=== PATIENT | male | born 1965 | race Caucasian/White ===

== ENCOUNTER → 2016-07-10 | Outpatient (CLI) | payer BC ==
[2016-07-10 08:22] LABS: ALT 48 U/L (21-72); AST 27 U/L (17-59); Cholesterol 147 mg/dL (<200); HDL Cholesterol 53 mg/dL (40-60); Triglycerides 93 mg/dL (<150)
== END | disposition home or self-care (01) ==
LOC: LABWHC1 07:13
PROVIDERS: ATTEND Internal Medicine Cardiovascular Disease
DX: I25.10 Atherosclerotic heart disease of native coronary artery without angina pectoris (principal); E78.5 Hyperlipidemia, unspecified
CPT/HCPCS: 36415; 80061; 84450; 84460

== ENCOUNTER 2016-10-16 09:56 | Emergency (ER) | payer BC ==
[2016-10-16 10:07] VITALS: RESP 16; TEMP 98
[2016-10-16] MEDS ORDERED: Acetaminophen-Codeine 300-30mg TAB PO STA (10:58)
--- NOTE | 2016-10-16 10:58 | ED ---
General Adult HPI - General Chief complaint: Head Injury Stated complaint: head injury, laceration Time Seen by Provider: 10/16/16 10:22 Source: patient, RN notes reviewed, old records reviewed Mode of arrival: ambulatory Limitations: no limitations - History of Present Illness Initial comments: This is a 51-year-old male here for evaluation of headache. Patient is had tonight and denies in his garage, mild laceration with minimal bleeding. Patient does have gapped wound. Not known severe headache at this time. No nausea vomiting. Patient did not pass out. No blood thinners. - Related Data Home Medications Medication Instructions Recorded Confirmed Aspirin 325 mg PO DAILY 08/14/14 10/16/16 Atorvastatin [Lipitor] 80 mg PO HS 08/14/14 10/16/16 Isosorbide Mononitrate [Isosorbide 30 mg PO DAILY 08/14/14 10/16/16 Mononitrate ER] Metoprolol Tartrate 50 mg PO DAILY 08/14/14 10/16/16 Omeprazole [PriLOSEC] 20 mg PO AC-BRKFST 08/14/14 10/16/16 Simvastatin [Zocor] 40 mg PO HS 08/14/14 10/16/16 Triamterene-Hctz 37.5-25Mg 1 each PO DAILY 08/14/14 10/16/16 [Dyazide 37.5-25 Capsule] Allergies Allergy/AdvReac Type Severity Reaction Status Date / Time Penicillins Allergy Rash/Hives Verified 10/16/16 10:07 Review of Systems ROS Statement: Those systems with pertinent positive or pertinent negative responses have been documented in the HPI. ROS Other: All systems not noted in ROS Statement are negative. Past Medical History Past Medical History: Coronary Artery Disease (CAD) Additional Past Medical History / Comment(s): Meniere's dx-tinnitis R ear, low back pain on occasion if lifts heavy, hiatal hernia, migraines History of Any Multi-Drug Resistant Organisms: None Reported Past Surgical History: Heart Catheterization With Stent, Hernia Repair Additional Past Surgical History / Comment(s): 2009 angioplasty and stenting. Bilateral inguinal hernia repair. EGD with dilation of esophagus. Date of Last Stent Placement:: 2009 Past Psychological History: No Psychological Hx Reported Additional Psychological History / Comment(s): Pt lives at home with his and his children. He is independent. 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 Smoking Status: Never smoker Past Alcohol Use History: Occasional Additional Past Alcohol Use History / Comment(s): Pt drinks alcohol on the weekends but < 14 per week. Past Drug Use History: None Reported - Past Family History Father Family Medical History: AFIB, Cancer Additional Family Medical History / Comment(s): Father has bladder cancer and has had AAA repair. Mother Family Medical History: Coronary Artery Disease (CAD) Additional Family Medical History / Comment(s): Mother has had 4-5 stents. She also has macular degeneration. Brother(s) Family Medical History: Cancer, Coronary Artery Disease (CAD), Hypertension Additional Family Medical History / Comment(s): Pt has one brother with colon cancer and one brother with hypertension and heart disease. General Exam Limitations: no limitations General appearance: alert, in no apparent distress Head exam: Present: normocephalic, normal inspection. Absent: atraumatic (1 cm laceration Of occiput) Eye exam: Present: normal appearance, PERRL, EOMI. Absent: scleral icterus, conjunctival injection, periorbital swelling ENT exam: Present: normal exam, mucous membranes moist Neck exam: Present: normal inspection. Absent: tenderness, meningismus, lymphadenopathy Respiratory exam: Present: normal lung sounds bilaterally. Absent: respiratory distress, wheezes, rales, rhonchi, stridor Cardiovascular Exam: Present: regular rate, normal rhythm, normal heart sounds. Absent: systolic murmur, diastolic murmur, rubs, gallop, clicks GI/Abdominal exam: Present: soft, normal bowel sounds. Absent: distended, tenderness, guarding, rebound, rigid Extremities exam: Present: normal inspection, full ROM, normal capillary refill. Absent: tenderness, pedal edema, joint swelling, calf tenderness Back exam: Present: normal inspection Neurological exam: Present: alert, oriented X3, CN II-XII intact Psychiatric exam: Present: normal affect, normal mood Skin exam: Present: warm, dry, intact, normal color. Absent: rash Course Vital Signs 10/16/16 10:04 Temperature 98.0 F Pulse Rate 73 Respiratory 16 Rate Blood Pressure 135/87 O2 Sat by Pulse 96 Oximetry - Reevaluation(s) Reevaluation #1: 10/16/16 10:56 Patient having mild headache after staple Procedures - Laceration Laceration #1 Consent Obtained: verbal consent Time Out Performed: Yes Indication: laceration Site: scalp Description: linear Depth: simple, single layer Pre-repair: irrigated extensively Type of Sutures: other (Stable) Complications: pain Patient Tolerated Procedure: well Medical Decision Making - Medical Decision Making 51 male here for evaluation of very, scalp laceration, improvement with 1 stable. Patient can be discharged home Disposition Clinical Impression: Scalp laceration, Closed head injury Disposition: HOME SELF-CARE Condition: Good Instructions: Concussion (ED), Staple Care (ED) Referrals: Esthela Mendez MD [Primary Care Provider] - 1-2 days
[2016-10-16 11:16] VITALS: BP 119/68; PULSE 62
== END 2016-10-16 11:14 | disposition home or self-care (01) ==
LOC: EC 09:56
DX: S01.01XA Laceration without foreign body of scalp, initial encounter (principal); I25.10 Atherosclerotic heart disease of native coronary artery without angina pectoris; Z79.82 Long term (current) use of aspirin; Z79.899 Other long term (current) drug therapy; Z88.0 Allergy status to penicillin; W22.8XXA Striking against or struck by other objects, initial encounter
CPT/HCPCS: 12001; 99284

== ENCOUNTER → 2017-06-25 | Outpatient (CLI) | payer BC ==
[2017-06-25 08:36] LABS: ALT 46 U/L (21-72); AST 25 U/L (17-59); Cholesterol 149 mg/dL (<200); HDL Cholesterol 52 mg/dL (40-60); LDL Cholesterol,Calculated 81 mg/dL (0-99); Triglycerides 81 mg/dL (<150)
== END | disposition home or self-care (01) ==
LOC: LABWHC1 07:22
PROVIDERS: ATTEND Internal Medicine Cardiovascular Disease
DX: E78.5 Hyperlipidemia, unspecified (principal); I25.10 Atherosclerotic heart disease of native coronary artery without angina pectoris
CPT/HCPCS: 36415; 80061; 84450; 84460

== ENCOUNTER → 2018-02-11 | Outpatient (CLI) | payer BC ==
[2018-02-11 09:06] LABS: ALT 39 U/L (21-72); AST 27 U/L (17-59); Cholesterol 141 mg/dL (<200); HDL Cholesterol 52 mg/dL (40-60); LDL Cholesterol,Calculated 71 mg/dL (0-99); Triglycerides 89 mg/dL (<150)
== END | disposition home or self-care (01) ==
LOC: LABWHC1 08:24
PROVIDERS: ATTEND Internal Medicine Cardiovascular Disease
DX: I25.10 Atherosclerotic heart disease of native coronary artery without angina pectoris (principal); E78.5 Hyperlipidemia, unspecified
CPT/HCPCS: 36415; 80061; 84450; 84460

== ENCOUNTER 2018-02-22 15:22 | Emergency (ER) | payer BC ==
[2018-02-22 15:38] VITALS: BP 142/91; PULSE 78; RESP 20; TEMP 98.2
--- NOTE | 2018-02-22 16:00 | ED ---
Upper Extremity HPI - General Chief Complaint: Extremity Injury, Upper Stated Complaint: rt wrist injury Time Seen by Provider: 02/22/18 15:39 Source: patient, RN notes reviewed Mode of arrival: ambulatory Limitations: no limitations - History of Present Illness Initial Comments: This is a 52-year-old male who presents to the emergency department with chief complaint of right wrist injury. 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 He states that yesterday he was pulling a beer barrel with his right and and then he accidentally slipped forward and his wrist jammed into the barrel. Patient reports pain to the ulnar aspect of his right wrist. He states he did go to work today but continued to have pain in the wrist. Denies any other injuries or trauma. Denies recent fevers or chills, chest pain or shortness breath, nausea or vomiting, numbness or tingling. - Related Data Home Medications Medication Instructions Recorded Confirmed Aspirin 325 mg PO DAILY 08/14/14 10/16/16 Atorvastatin [Lipitor] 80 mg PO HS 08/14/14 10/16/16 Isosorbide Mononitrate [Isosorbide 30 mg PO DAILY 08/14/14 10/16/16 Mononitrate ER] Metoprolol Tartrate 50 mg PO DAILY 08/14/14 10/16/16 Omeprazole [PriLOSEC] 20 mg PO AC-BRKFST 08/14/14 10/16/16 Simvastatin [Zocor] 40 mg PO HS 08/14/14 10/16/16 Triamterene-Hctz 37.5-25Mg 1 each PO DAILY 08/14/14 10/16/16 [Dyazide 37.5-25 Capsule] Allergies Allergy/AdvReac Type Severity Reaction Status Date / Time Penicillins Allergy Rash/Hives Verified 02/22/18 15:38 Review of Systems ROS Statement: Those systems with pertinent positive or pertinent negative responses have been documented in the HPI. ROS Other: All systems not noted in ROS Statement are negative. Past Medical History Past Medical History: Coronary Artery Disease (CAD) Additional Past Medical History / Comment(s): Meniere's dx-tinnitis R ear, low back pain on occasion if lifts heavy, hiatal hernia, migraines History of Any Multi-Drug Resistant Organisms: None Reported Past Surgical History: Heart Catheterization With Stent, Hernia Repair Additional Past Surgical History / Comment(s): 2010 angioplasty and stenting. Bilateral inguinal hernia repair. EGD with dilation of esophagus. Date of Last Stent Placement:: 2009 Past Psychological History: No Psychological Hx Reported Smoking Status: Never smoker Past Alcohol Use History: Occasional Past Drug Use History: None Reported - Past Family History Father Family Medical History: AFIB, Cancer Additional Family Medical History / Comment(s): Father has bladder cancer and has had AAA repair. Mother Family Medical History: Coronary Artery Disease (CAD) Additional Family Medical History / Comment(s): Mother has had 4-5 stents. She also has macular degeneration. Brother(s) Family Medical History: Cancer, Coronary Artery Disease (CAD), Hypertension Additional Family Medical History / Comment(s): Pt has one brother with colon cancer and one brother with hypertension and heart disease. General Exam - General Exam Comments Initial Comments: General: Awake and alert, well-developed; in no apparent distress. HEENT: Head atraumatic, normocephalic. Pupils are equal, round and reactive to light. Extraocular movements intact. Oropharynx moist without erythema or exudate. Neck: Supple. Normal ROM. Cardiovascular: Regular rate and rhythm. No murmurs, rubs or gallops. Chest symmetrical. Respiratory: Lungs clear to auscultation bilaterally. No wheezes, rales or rhonchi. Normal respiratory effort with no use of accessory muscles. Musculoskeletal: Normal range of motion of the right wrist and hand. There is tenderness and mild soft tissue swelling surrounding the ulnar styloid process. Sensation is intact. Radial pulses are 2+ equal and palpable bilaterally. No obvious gross deformities. Skin: [place], warm and dry without rashes or lesions. Neurological: Alert and oriented x3. CN II-XII grossly intact. Speech is fluent and answers are appropriate. No focal neuro deficits. Psychiatric: Normal mood and affect. No overt signs of depression or anxiety noted. Limitations: no limitations Course Vital Signs 02/22/18 15:36 Temperature 98.2 F Pulse Rate 78 Respiratory 20 Rate Blood Pressure 142/91 O2 Sat by Pulse 96 Oximetry Medical Decision Making - Medical Decision Making This is a 52-year-old male who presents to the emergency department with chief complaint of right wrist injury. Patient reports pain to the ulnar aspect of his right wrist. There is tenderness and mild soft tissue swelling surrounding the ulnar styloid. X-ray reveals no acute fractures or dislocations. Patient is likely suffering from a wrist sprain. Recommend rest, ice, elevation and use of an Lucas bandage as needed. Recommended repeat x-rays in 7-10 days if no improvement in symptoms. Patient is in agreement with plan and voices understanding. He is in no acute distress and will be discharged home at this time. All questions were answered. - Radiology Data Radiology results: report reviewed, image reviewed X-ray right wrist impression: There is no acute fracture or dislocation in the right wrist. Disposition Clinical Impression: Right wrist sprain Disposition: HOME SELF-CARE Condition: Good Instructions: Wrist Sprain (ED) Additional Instructions: As discussed, please have repeat x-rays if pain persists beyond the next 7-10 days. Please follow up with primary care provider within 1-2 days. Return to emergency department if symptoms should worsen or any concerns arise. Is patient prescribed a controlled substance at d/c from ED?: No Referrals: Esthela Mendez MD [Primary Care Provider] - 1-2 days Time of Disposition: 16:06
--- NOTE | 2018-02-22 16:02 | XR ---
EXAMINATION TYPE: XR wrist complete RT DATE OF EXAM: 02/22/2018 CLINICAL HISTORY: Jamming injury with pain. TECHNIQUE: Frontal, lateral, scaphoid, and oblique images of the right wrist are obtained. COMPARISON: None FINDINGS: There is no acute fracture/dislocation evident in the right wrist. The joint spaces in th e right wrist appear within normal limits. The overlying soft tissue appears unremarkable. IMPRESSION: There is no acute fracture or dislocation in the right wrist.
== END 2018-02-22 16:20 | disposition home or self-care (01) ==
LOC: EC 15:22
DX: S63.501A Unspecified sprain of right wrist, initial encounter (principal); I25.10 Atherosclerotic heart disease of native coronary artery without angina pectoris; Z95.5 Presence of coronary angioplasty implant and graft; Z79.82 Long term (current) use of aspirin; Z79.899 Other long term (current) drug therapy; Z88.0 Allergy status to penicillin; W23.1XXA Caught, crushed, jammed, or pinched between stationary objects, initial encounter; Y93.89 Activity, other specified; Y92.009 Unspecified place in unspecified non-institutional (private) residence as the place of occurrence of the external cause
CPT/HCPCS: 99283

== ENCOUNTER → 2018-10-09 | Outpatient (CLI) | payer BC ==
[2018-10-09 11:25] LABS: LDL Cholesterol,Calculated 67.2 mg/dL (0.0-131.0); VLDL Calculation 25.8 mg/dL (5.00-40.00)
== END | disposition home or self-care (01) ==
LOC: LABWHC1 06:42
PROVIDERS: ATTEND Internal Medicine Cardiovascular Disease
DX: E78.5 Hyperlipidemia, unspecified (principal); I25.10 Atherosclerotic heart disease of native coronary artery without angina pectoris
CPT/HCPCS: 36415; 80061; 84450; 84460

== ENCOUNTER 2018-10-23 09:09 | Day surgery (SDC) | payer BC ==
[2018-10-18 12:03] VITALS: BMI 34.1
[~2018-10-23 09:09] MED LIST: LACTATED RINGERS 1,000 ML IV SCH
[2018-10-23 10:00] VITALS: RESP 16; TEMP 98.1
[2018-10-23] MEDS ORDERED: LIDOCAINE 1% 20 ML VIAL (10MG/ML) FOR IV START INTRADERMA ONE (10:04)
[2018-10-23] MEDS ORDERED: fentaNYL (PF) 50 MCG/ML 2 ML AMP ONE (11:19)
[2018-10-23] MEDS ORDERED: GLYCOPYRROLATE 0.2 MG/ML 2 ML VIAL ONE (11:19)
[2018-10-23] MEDS ORDERED: MIDAZOLAM 2 MG/2 ML VIAL ONE (11:19)
[2018-10-23] MEDS ORDERED: PROPOFOL 10 MG/ML 20 ML VIAL IV ONE (11:19)
--- NOTE | 2018-10-23 12:10 | P.PCN ---
Date of Procedure: 10/23/18 Description of Procedure: BRIEF HISTORY: Pleasant 53-year-old male who presents for outpatient colonoscopy.Family history of colon cancer in his brother was diagnosed in his 50s. Last colonoscopy was 5 years ago per the patient. He denies any abdominal pain, change in bowel habits or blood per rectum. PROCEDURE PERFORMED: Colonoscopy with polypectomy and biopsy. PREOPERATIVE DIAGNOSIS: Family history of colon cancer in first-degree relative, last colonoscopy 5 years ago. ESTIMATED BLOOD LOSS: Minimal. IV sedation per Anesthesia. PROCEDURE: After informed consent was obtained, the patient, was brought into the endoscopy unit. IV sedation was administered by Anesthesia under continuous monitoring. Digital rectal examination was normal. Initially the Olympus CF-190 flexible video colonoscope was then inserted in the rectum, gradually advanced into the cecum without any difficulty. The terminal ileum was intubated and appeared normal. Careful examination was performed as the scope was gradually being withdrawn. Ileocecal valve and the appendiceal orifice were visualized and appeared normal. Prep was excellent. Mucosa of the cecum, ascending colon, transverse colon, descending colon, sigmoid colon, and rectum appeared normal. One diminutive 2 mm sessile transverse colon polyp removed with cold forcep polypectomy. Thickened fold in the sigmoid colon highly suspicious for lipoma biopsied. Mild internal hemorrhoids. Retroflexion was performed in the rectum and no lesions were seen. The patient tolerated the procedure well. IMPRESSION: Diminutive transverse colon polyp removed by cold forceps polypectomy Thickened fold, suspicious for lipoma, biopsied Mild internal hemorrhoids RECOMMENDATIONS: Findings of this examination were discussed with the patient and his . Okay to resume diet. Await pathology from biopsies. Anticipate repeat colonoscopy in 5 years for high risk screening, pending pathology from biopsies.
[2018-10-23 12:31] VITALS: BP 136/84; PULSE 46
== END 2018-10-23 12:41 | disposition home or self-care (01) ==
LOC: ORWHC2ENDO 09:09
PROVIDERS: ATTEND Internal Medicine
DX: Z12.11 Encounter for screening for malignant neoplasm of colon (principal); Z80.0 Family history of malignant neoplasm of digestive organs; D12.3 Benign neoplasm of transverse colon; K64.8 Other hemorrhoids; D12.5 Benign neoplasm of sigmoid colon; I10 Essential (primary) hypertension; E78.5 Hyperlipidemia, unspecified; I25.10 Atherosclerotic heart disease of native coronary artery without angina pectoris; Z95.5 Presence of coronary angioplasty implant and graft; K21.9 Gastro-esophageal reflux disease without esophagitis; Z79.899 Other long term (current) drug therapy; Z88.0 Allergy status to penicillin; Z79.890 Hormone replacement therapy; Z79.82 Long term (current) use of aspirin
CPT/HCPCS: 88305; 45380; J2250; J3010; J2704

== ENCOUNTER → 2019-08-06 | Outpatient (CLI) | payer BC ==
[2019-08-06 11:23] LABS: Albumin 4.7 g/dL (3.80-4.90); Albumin/Globulin Ratio 1.88 (1.60-3.17); Bilirubin, Conjugated 0.2 mg/dL (0.20-0.40); Bilirubin,Unconjugated 0.3 mg/dL; Chol/HDL Ratio 2.74; Globulin 2.5 g/dL (1.6-3.3); LDL Cholesterol,Calculated 68.6 mg/dL (0.0-131.0); Total Bilirubin 0.5 mg/dL (0.3-1.2); Total Protein 7.2 g/dL (6.2-8.2); VLDL Calculation 25.4 mg/dL (5.00-40.00)
== END | disposition home or self-care (01) ==
LOC: LABWHC1 07:05
PROVIDERS: ATTEND Internal Medicine Cardiovascular Disease
DX: I25.10 Atherosclerotic heart disease of native coronary artery without angina pectoris (principal); E78.5 Hyperlipidemia, unspecified
CPT/HCPCS: 36415; 80061; 80076

== ENCOUNTER → 2020-07-07 | Outpatient (CLI) | payer BC ==
[2020-07-07 11:17] LABS: African American GFR (CKD) 109.5 (60.0-200.0); Albumin 4.4 g/dL (3.80-4.90); Albumin/Globulin Ratio 1.91 (1.60-3.17); Anion Gap 7.2 mmol/L (4.00-12.00); BUN/Creat Ratio 15.56 Ratio (12.00-20.00); Calcium 9.1 mg/dL (8.7-10.3); Carbon Dioxide 27.8 mmol/L (21.6-31.8); Globulin 2.3 g/dL (1.6-3.3); Non-African American GFR(CKD) 94.5 (60.0-200.0); Potassium 4.4 mmol/L (3.5-5.5); Total Bilirubin 0.6 mg/dL (0.3-1.2); Total Protein 6.7 g/dL (6.2-8.2)
== END | disposition home or self-care (01) ==
LOC: LABWHC1 07:29
PROVIDERS: ATTEND Internal Medicine Cardiovascular Disease
DX: I10 Essential (primary) hypertension (principal)
CPT/HCPCS: 36415; 80053

== ENCOUNTER 2020-09-04 13:50 | Emergency (ER) | payer BC ==
--- NOTE | 2020-09-04 14:36 | ED ---
General Adult HPI - General Source: patient, RN notes reviewed Mode of arrival: ambulatory Limitations: no limitations <Ulisses Murphy - Last Filed: 09/04/20 14:35> <Danie Pena - Last Filed: 09/05/20 11:26> - General Stated complaint: Unable to Urinate Time Seen by Provider: 09/04/20 14:33 - History of Present Illness Initial comments: This a 55-year-old male presents emergency room chief complaint of unable to urinate. Patient states he noticed some urinary frequency decreased urine output over the last day or 2. Patient states he does take Lasix. Patient states that he has never been diagnosed with prostate she. Patient states that he feels that he has to urinate but unable to. Patient states feels achiness in his flank region, lower abdomen. Patient denies any prior urinary retention issues. (Ulisses Murphy) - Related Data Home Medications Medication Instructions Recorded Confirmed Aspirin 325 mg PO DAILY 08/14/14 09/04/20 Atorvastatin [Lipitor] 80 mg PO HS 08/14/14 09/04/20 Isosorbide Mononitrate [Isosorbide 30 mg PO DAILY 08/14/14 09/04/20 Mononitrate ER] Metoprolol Tartrate 50 mg PO DAILY 08/14/14 09/04/20 Omeprazole [PriLOSEC] 20 mg PO AC-BRKFST 08/14/14 09/04/20 Triamterene-Hctz 37.5-25Mg 1 tab PO DAILY 08/14/14 09/04/20 [Dyazide 37.5-25 Capsule] lisinopriL [Zestril] 5 mg PO DAILY 10/18/18 09/04/20 Allergies Allergy/AdvReac Type Severity Reaction Status Date / Time Penicillins Allergy Rash/Hives Verified 09/04/20 15:41 Review of Systems ROS Other: All systems not noted in ROS Statement are negative. <Ulisses Murphy - Last Filed: 09/04/20 14:35> ROS Other: All systems not noted in ROS Statement are negative. <Danie Pena - Last Filed: 09/05/20 11:26> ROS Statement: Those systems with pertinent positive or pertinent negative responses have been documented in the HPI. Past Medical History Past Medical History: Coronary Artery Disease (CAD), Hyperlipidemia, Hypertension Additional Past Medical History / Comment(s): Meniere's dx-tinnitis R ear, low back pain on occasion if lifts heavy, hiatal hernia, migraines History of Any Multi-Drug Resistant Organisms: None Reported Past Surgical History: Heart Catheterization With Stent, Hernia Repair Additional Past Surgical History / Comment(s): 2009 angioplasty and stenting. Bilateral inguinal hernia repair. EGD with dilation of esophagus. colonoscopy Past Anesthesia/Blood Transfusion Reactions: Motion Sickness Date of Last Stent Placement:: 2009 Past Psychological History: No Psychological Hx Reported Past Alcohol Use History: Occasional Additional Past Alcohol Use History / Comment(s): Pt drinks alcohol on the weekends but < 14 per week. Past Drug Use History: None Reported - Past Family History Father Family Medical History: AFIB, Cancer Additional Family Medical History / Comment(s): Father has bladder cancer and h as had AAA repair. Mother Family Medical History: Coronary Artery Disease (CAD) Additional Family Medical History / Comment(s): Mother has had 4-5 stents. She also has macular degeneration. Brother(s) Family Medical History: Cancer, Coronary Artery Disease (CAD), Hypertension Additional Family Medical History / Comment(s): Pt has one brother with colon cancer and one brother with hypertension and heart disease. <Ulisses Murphy - Last Filed: 09/04/20 14:35> Course Vital Signs 09/04/20 09/04/20 14:34 17:36 Temperature 98.8 F 97.9 F Pulse Rate 81 62 Respiratory 20 17 Rate Blood Pressure 144/95 137/77 O2 Sat by Pulse 97 97 Oximetry Medical Decision Making - Lab Data Result diagrams: 09/04/20 15:15 09/04/20 15:15 <Danie Pena - Last Filed: 09/05/20 11:26> - Medical Decision Making 55-year-old male presents emergency Department with chief complaint of inability to urinate. On physical examination, mild bilateral CVA tenderness. Patient is otherwise resting comfortably and does not appear to be in any significant discomfort. He sees a urologist for prostate related issues. He takes triamterene hctz for his Mnire's and typically urinates often but this has decreased over the past 2 days. However, he still able to urinate and was able to give us urine sample here. Post void is 165ml. UA unremarkable. CMP reveals no acute kidney injury. BUN/creatinine within normal limits. UA unremarkable. I offered a [place] catheter to patient, he declined. States he would rather follow up with the urologist which she has an appointment for next week. Strict return parameters were thoroughly discussed with patient was understanding and agreeable. Case discussed with Dr. Katrina Bonilla. (Danie Pena) - Lab Data Lab Results 09/04/20 09/04/20 09/04/20 Range/Units 15:15 15:15 15:20 WBC 4.8 (3.8-10.6) k/uL RBC 5.09 (4.30-5.90) m/uL Hgb 15.8 (13.0-17.5) gm/dL Hct 45.0 (39.0-53.0) % MCV 88.3 (80.0-100.0) fL MCH 31.1 (25.0-35.0) pg MCHC 35.2 (31.0-37.0) g/dL RDW 13.4 (11.5-15.5) % Plt Count 230 (150-450) k/uL MPV 7.0 Neutrophils % 45 % Lymphocytes % 38 % Monocytes % 12 % Eosinophils % 1 % Basophils % 2 % Neutrophils # 2.1 (1.3-7.7) k/uL Lymphocytes # 1.8 (1.0-4.8) k/uL Monocytes # 0.6 (0-1.0) k/uL Eosinophils # 0.1 (0-0.7) k/uL Basophils # 0.1 (0-0.2) k/uL Sodium 137 (137-145) mmol/L Potassium 3.9 (3.5-5.1) mmol/L Chloride 105 (98-107) mmol/L Carbon Dioxide 22 (22-30) mmol/L Anion Gap 10 mmol/L BUN 20 (9-20) mg/dL Creatinine 1.03 (0.66-1.25) mg/dL Est GFR (CKD-EPI)AfAm >90 (>60 ml/min/1.73 sqM) Est GFR (CKD-EPI)NonAf 81 (>60 ml/min/1.73 sqM) Glucose 96 (74-99) mg/dL Calcium 9.2 (8.4-10.2) mg/dL Total Bilirubin 0.6 (0.2-1.3) mg/dL AST 48 (17-59) U/L ALT 51 H (4-49) U/L Alkaline Phosphatase 113 (38-126) U/L Total Protein 7.9 (6.3-8.2) g/dL Albumin 4.6 (3.5-5.0) g/dL Urine Color Yellow Urine Appearance Clear (Clear) Urine pH 5.0 (5.0-8.0) Ur Specific [place] 1.024 (1.001-1.035) Urine Protein Negative (Negative) Urine Glucose (UA) Negative (Negative) Urine Ketones Negative (Negative) Urine Blood Negative (Negative) Urine Nitrite Negative (Negative) Urine Bilirubin Negative (Negative) Urine Urobilinogen <2.0 (<2.0) mg/dL Ur Leukocyte Esterase Negative (Negative) Disposition <Ulisses Murphy - Last Filed: 09/04/20 14:35> Is patient prescribed a controlled substance at d/c from ED?: No Time of Disposition: 16:38 <Danie Pena - Last Filed: 09/05/20 11:26> Clinical Impression: Urinary retention Disposition: HOME SELF-CARE Condition: Stable Instructions (If sedation given, give patient instructions): Urinary Retention in Men (ED) Additional Instructions: Follow-up with urologist. Return to emergency department if symptoms worsen. Referrals: Esthela Mendez MD [Primary Care Provider] - 1-2 days
[2020-09-04] MEDS ORDERED: SODIUM CHLORIDE 0.9% 1,000 ML IV ONE (15:01)
[2020-09-04 15:37] LABS: Basophils # (A) 0.1 k/uL (0-0.2); Basophils % (A) 2 %; Eosinophils # (A) 0.1 k/uL (0-0.7); Eosinophils % (A) 1 %; HGB 15.8 gm/dL (13.0-17.5); Lymphocytes # (A) 1.8 k/uL (1.0-4.8); Lymphocytes % (A) 38 %; MCH 31.1 pg (25.0-35.0); MCHC 35.2 g/dL (31.0-37.0); MCV 88.3 fL (80.0-100.0); Monocytes # (A) 0.6 k/uL (0-1.0); Monocytes % (A) 12 %; Neutrophils # (A) 2.1 k/uL (1.3-7.7); Neutrophils % (A) 45 %; Platelet Count 230 k/uL (150-450); RBC 5.09 m/uL (4.30-5.90); RDW 13.4 % (11.5-15.5); WBC 4.8 k/uL (3.8-10.6)
[2020-09-04 15:38] LABS: Appearance,Urine Clear (Clear); Bilirubin,Urine Negative (Negative); Blood,Urine Negative (Negative); Color,Urine Yellow; Glucose,Urine (UA) Negative (Negative); Ketones,Urine Negative (Negative); Leukocyte Esterase,Urine Negative (Negative); Nitrite,Urine Negative (Negative); Protein,Urine Negative (Negative); Specific Gravity,Urine 1.024 (1.001-1.035); Urobilinogen,Urine <2.0 mg/dL (<2.0)
[2020-09-04 15:56] LABS: ALT 51 U/L (4-49); AST 48 U/L (17-59); African American GFR (CKD) >90 (>60 ml/min/1.73 sqM); Albumin 4.6 g/dL (3.5-5.0); Alkaline Phosphatase 113 U/L (38-126); Anion Gap 10 mmol/L; Blood Urea Nitrogen 20 mg/dL (9-20); Calcium 9.2 mg/dL (8.4-10.2); Carbon Dioxide 22 mmol/L (22-30); Chloride 105 mmol/L (98-107); Glucose 96 mg/dL (74-99); Non-African American GFR(CKD) 81 (>60 ml/min/1.73 sqM); Potassium 3.9 mmol/L (3.5-5.1); Sodium 137 mmol/L (137-145); Total Bilirubin 0.6 mg/dL (0.2-1.3); Total Protein 7.9 g/dL (6.3-8.2)
[2020-09-04 17:37] VITALS: BP 137/77; PULSE 62; RESP 17; TEMP 97.9
[2020-09-05 22:02] LABS: Hepatitis A Antibody IgM Non-Reactive (Non-Reactive); Hepatitis B Core IgM Non-Reactive (Non-Reactive); Hepatitis B Surface Antigen Non-Reactive (Non-Reactive); Hepatitis C IgG Antibody Non-Reactive (Non-Reactive)
== END 2020-09-04 17:37 | disposition home or self-care (01) ==
LOC: EC 13:50
DX: R33.9 Retention of urine, unspecified (principal); I25.10 Atherosclerotic heart disease of native coronary artery without angina pectoris; I10 Essential (primary) hypertension; E78.5 Hyperlipidemia, unspecified
CPT/HCPCS: 36415; 51798; 80053; 80074; 81003; 85025; 96360; 96361; 99283

== ENCOUNTER → 2021-06-29 | Outpatient (CLI) | payer BC ==
[2021-06-29 10:59] LABS: Chol/HDL Ratio 2.98 Ratio; LDL Cholesterol,Calculated 72.2 mg/dL (0.0-131.0)
[2021-06-29 11:09] LABS: ALT 30 U/L (10-49); AST 26 U/L (14-35); Albumin 4.2 g/dL (3.8-4.9); Albumin/Globulin Ratio 1.45 (1.60-3.17); Alkaline Phosphatase 114 U/L (41-126); Bilirubin, Conjugated <0.20 mg/dL (0.20-0.40); Globulin 2.9 g/dL (1.6-3.3); Total Protein 7.1 g/dL (6.2-8.2)
== END | disposition home or self-care (01) ==
LOC: LABWHC1 07:14
PROVIDERS: ATTEND Internal Medicine Cardiovascular Disease
DX: I25.10 Atherosclerotic heart disease of native coronary artery without angina pectoris (principal); E78.5 Hyperlipidemia, unspecified
CPT/HCPCS: 36415; 80061; 80076

== ENCOUNTER → 2021-11-18 | Outpatient (CLI) | payer BC ==
--- NOTE | 2021-11-18 20:06 | CONS ---
CONSULTATION DATE OF SERVICE: 11/18/2021 56-year-old gentleman has been evaluated in [facility] for possible obstructive sleep apnea-hypopnea syndrome. HISTORY OF PRESENT ILLNESS/SLEEP-WAKE EVALUATION: SLEEP SCHEDULE: Patient's usual sleep schedule on weekdays from 7:30 pm until 10:30 pm and on weekends from 10 p.m. until 5:30 a.m. FALLING ASLEEP: No problems with falling asleep, although has TV set in bedroom. DURING SLEEP: Usually sleeps on the side position. He possibly may wake up once from sleep with nocturia. He denied any snoring. DURING THE DAY/SLEEP WAKE EVALUATION: During the day, he feels well, does not take any naps. [place] Sleepiness Scale is 1. No history of hypnagogic hallucinations, sleep paralysis or cataplexy. PAST MEDICAL HISTORY: Positive for hypertension, coronary artery disease, acid reflux, hyperlipidemia. PAST SURGICAL HISTORY: Stent insertion to coronary artery and hernia repair. MEDICATIONS: Aspirin 325 mg once a day, omeprazole 20 mg once a day, metoprolol 50 mg once a day, lisinopril 5 mg once a day, isosorbide 30 mg once a day, triamterene hydrochlorothiazide once a day, atorvastatin 80 mg once a day. SOCIAL HISTORY: Negative for smoking, alcohol consumption occasional. FAMILY HISTORY: Hypertension, heart problems, arthritis, cancer, thyroid problems, acid reflux. REVIEW OF SYSTEMS: Basically negative. PHYSICAL EXAM: pleasant gentleman without distress. BP 143/90, HR 76, RR 16, height 5 feet 9-3/4 inches, weight 241.6 pounds, body mass index 34.8, neck 18-3/4 inches in circumference. Temperature 98 degrees, oxygen saturation at room air 96%. Oropharynx extremely low position of soft palate, Mallampati 4. Neck 18-3/4 inches in circumference. Neck: Supple, no JVD. Thyroid is not palpable. LUNGS: Clear to percussion and to auscultation. Good air exchange. No wheezing or rhonchi. HEART: S1, S2 regular. No murmurs, gallops, or rubs. ABDOMEN: Soft and nontender. Bowel sounds are present. No organomegaly appreciated. EXTREMITIES: No clubbing or cyanosis. 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 Cranial nerves 2 to 7 intact. There is no fasciculation or atrophy. noted. No focal deficits observed. IMPRESSION: 1. Extremely low position of soft palate, Mallampati 4, wide neck, 18-3/4 inches in circumference. Occasional awakenings from sleep with nocturia possible obstructive sleep apnea-hypopnea syndrome. 2. Obesity; body mass index 34.8. 3. Hypertension. 4. Coronary artery disease, status post stent insertion. 5. Acid reflux. 6. Hyperlipidemia. 7. Status post hernia repair. 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 PLAN: 1. Home sleep apnea test for evaluation of patient breathing during sleep. 2. CPAP/BiPAP titration if sleep study confirms obstructive sleep apnea-hypopnea syndrome. 3. Preferable position during sleep on the side. 4. No driving if patient feels any sleepiness. 5. I will see patient for follow up visit to explain results of testing and following plan. Thank you very much for referring this patient for consultation. Sincerely, Henrik Wood MD, PhD, FAASM Diplomat of [place] [employer] Sleep Medicine Board of [place] [employer] Air Drier Machine Operator [facility] Concepcion MMODL / IJN: [id number] /
== END | disposition home or self-care (01) ==
LOC: SLEEP 15:28
PROVIDERS: ATTEND Internal Medicine
DX: G47.33 Obstructive sleep apnea (adult) (pediatric) (principal); E66.9 Obesity, unspecified; Z68.34 Body mass index [BMI] 34.0-34.9, adult; I10 Essential (primary) hypertension; K21.9 Gastro-esophageal reflux disease without esophagitis; I25.10 Atherosclerotic heart disease of native coronary artery without angina pectoris; E78.5 Hyperlipidemia, unspecified; Z98.890 Other specified postprocedural states

== ENCOUNTER 2021-12-30 12:07 | Emergency (ER) | payer BC, OTHER ==
[2021-12-30 12:25] VITALS: BP 113/83; PULSE 75; RESP 16; TEMP 98.1
--- NOTE | 2021-12-30 12:41 | XR ---
EXAMINATION TYPE: XR knee complete LT DATE OF EXAM: 12/30/2021 COMPARISON: NONE HISTORY: Left knee pain after fall. TECHNIQUE: Frontal, lateral, and oblique views of the left knee. FINDINGS: There is no evidence for fracture or dislocation. No joint space narrowing or joint effusio n. Soft tissues are within normal limits. Incidental fabella. IMPRESSION: No evidence for acute fracture or dislocation.
--- NOTE | 2021-12-30 14:25 | ED ---
Lower Extremity Injury HPI - General Chief Complaint: Extremity Injury, Lower Stated Complaint: [facility] Knee injury Time Seen by Provider: 12/30/21 13:54 Source: patient, RN notes reviewed Mode of arrival: ambulatory Limitations: no limitations - History of Present Illness Initial Comments: 56-year-old male presents emergency from chief complaint of left knee pain. 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 Patient states several nontender this morning. Patient states he has increasing swelling, pain. Patient states his pain in the medial aspect and by his kneecap. No prior surgeries no prior injuries denies any paresthesias - Related Data Home Medications Medication Instructions Recorded Confirmed Aspirin 325 mg PO DAILY 08/14/14 09/04/20 Atorvastatin [Lipitor] 80 mg PO HS 08/14/14 09/04/20 Isosorbide Mononitrate [Isosorbide 30 mg PO DAILY 08/14/14 09/04/20 Mononitrate ER] Metoprolol Tartrate 50 mg PO DAILY 08/14/14 09/04/20 Omeprazole [PriLOSEC] 20 mg PO AC-BRKFST 08/14/14 09/04/20 Triamterene-Hctz 37.5-25Mg 1 tab PO DAILY 08/14/14 09/04/20 [Dyazide 37.5-25 Capsule] lisinopriL [Zestril] 5 mg PO DAILY 10/18/18 09/04/20 Allergies Allergy/AdvReac Type Severity Reaction Status Date / Time Penicillins Allergy Rash/Hives Verified 12/30/21 12:25 Review of Systems ROS Statement: Those systems with pertinent positive or pertinent negative responses have been documented in the HPI. ROS Other: All systems not noted in ROS Statement are negative. Past Medical History Past Medical History: Coronary Artery Disease (CAD), Hyperlipidemia, Hypertension Additional Past Medical History / Comment(s): Meniere's dx-tinnitis R ear, low back pain on occasion if lifts heavy, hiatal hernia, migraines History of Any Multi-Drug Resistant Organisms: None Reported Past Surgical History: Heart Catheterization With Stent, Hernia Repair Additional Past Surgical History / Comment(s): 2009 angioplasty and stenting. Bilateral inguinal hernia repair. EGD with dilation of esophagus. colonoscopy Past Anesthesia/Blood Transfusion Reactions: Motion Sickness Date of Last Stent Placement:: 2009 Past Psychological History: No Psychological Hx Reported Smoking Status: Never smoker Past Alcohol Use History: Occasional Past Drug Use History: None Reported - Past Family History Father Family Medical History: AFIB, Cancer Additional Family Medical History / Comment(s): Father has bladder cancer and has had AAA repair. Mother Family Medical History: Coronary Artery Disease (CAD) Additional Family Medical History / Comment(s): Mother has had 4-5 stents. She also has macular degeneration. Brother(s) Family Medical History: Cancer, Coronary Artery Disease (CAD), Hypertension Additional Family Medical History / Comment(s): Pt has one brother with colon cancer and one brother with hypertension and heart disease. General Exam Limitations: no limitations General appearance: alert, in no apparent distress Head exam: Present: atraumatic, normocephalic, normal inspection Eye exam: Present: normal appearance, PERRL. Absent: scleral icterus, conjunctival injection, periorbital swelling Neck exam: Present: normal inspection. Absent: tenderness, meningismus, lymphadenopathy Respiratory exam: Present: normal lung sounds bilaterally. Absent: respiratory distress, wheezes, rales, rhonchi, stridor Cardiovascular Exam: Present: regular rate, normal rhythm, normal heart sounds. Absent: systolic murmur, diastolic murmur, rubs, gallop, clicks Extremities exam: Present: other (Left knee there is moderate swelling noted, joint effusion, pain with range of motion pain with valgus stress, no notable laxity otherwise neurovascular intact) Course Vital Signs 12/30/21 12:22 Temperature 98.1 F Pulse Rate 75 Respiratory 16 Rate Blood Pressure 113/83 O2 Sat by Pulse 95 Oximetry Medical Decision Making - Medical Decision Making X-ray does not show any significant abnormality patient has concerning symptoms for ligamentous injury including MCL, ACL. Patient was placed in knee immobilizer follow-up with orthopedics return parameters were discussed. Disposition Clinical Impression: Left knee sprain, Injury of knee, ligament Disposition: HOME SELF-CARE Condition: Stable Instructions (If sedation given, give patient instructions): Knee Sprain (ED) Additional Instructions: Please return to the Emergency Department if symptoms worsen or any other concerns. Is patient prescribed a controlled substance at d/c from ED?: No Referrals: Esthela Mendez MD [Primary Care Provider] - 1-2 days Ayush Palumbo MD [STAFF PHYSICIAN] - 1-2 days Time of Disposition: 14:25
== END 2021-12-30 14:59 | disposition home or self-care (01) ==
LOC: EC 12:07
DX: S83.401A Sprain of unspecified collateral ligament of right knee, initial encounter (principal); I25.10 Atherosclerotic heart disease of native coronary artery without angina pectoris; E78.5 Hyperlipidemia, unspecified; I10 Essential (primary) hypertension; Z88.0 Allergy status to penicillin
CPT/HCPCS: 73562; 99283; L1830

== ENCOUNTER → 2022-06-28 | Outpatient (CLI) | payer BC ==
[2022-06-28 14:49] LABS: ALT 34 U/L (10-49); AST 26 U/L (14-35); African American GFR (CKD) 90.7 (60.0-200.0); Albumin 4.5 g/dL (3.8-4.9); Albumin/Globulin Ratio 1.53 (1.60-3.17); Alkaline Phosphatase 128 U/L (41-126); BUN/Creat Ratio 14.62 Ratio (12.00-20.00); Blood Urea Nitrogen 15.2 mg/dL (9.0-27.0); Calcium 9.6 mg/dL (8.7-10.3); Carbon Dioxide 24.2 mmol/L (20.0-27.5); Chloride 102 mmol/L (96-109); Chol/HDL Ratio 3.09 Ratio; Globulin 2.9 g/dL (1.6-3.3); Glucose 97 mg/dL (70-110); Non-African American GFR(CKD) 78.2 (60.0-200.0); Potassium 4.6 mmol/L (3.5-5.5); Sodium 138 mmol/L (135-145); Total Protein 7.4 g/dL (6.2-8.2)
== END | disposition home or self-care (01) ==
LOC: LABWHC1 08:05
PROVIDERS: ATTEND Nurse Practitioner
DX: I10 Essential (primary) hypertension (principal); I25.10 Atherosclerotic heart disease of native coronary artery without angina pectoris
CPT/HCPCS: 36415; 80053; 80061; 84443

== ENCOUNTER 2024-01-31 08:39 | Day surgery (SDC) | payer BC ==
[~2024-01-31 08:39] MED LIST changes: -LACTATED RINGERS 1,000 ML IV SCH; +LIDOCAINE 1% (10MG/ML) FOR IV START INTRADERMA PRN
[2024-01-31] MEDS: IV FLUID CONTINUATION 1,000 ML IV ONE (09:31)
[2024-01-31 09:37] VITALS: RESP 16; TEMP 98
[2024-01-31] MEDS: LACTATED RINGERS 1,000 ML IV SCH (09:37)
[2024-01-31] MEDS ORDERED: LIDOCAINE 1% INJ 10MG/ML (20 ML MDV) ONE (10:02)
[2024-01-31] MEDS ORDERED: PROPOFOL 10 MG/ML 20 ML VIAL IV ONE (10:02)
--- NOTE | 2024-01-31 10:04 | P.GSHP ---
History of Present Illness H&P Date: 01/31/24 Chief Complaint: Colon cancer screening 58-year-old male here for colonoscopy. Last colonoscopy 5 years ago. 2 areas were biopsied both benign non-adenomatous. Family history of colon cancer in his brother. No bowel complaints. Past Medical History Past Medical History: Coronary Artery Disease (CAD), Hyperlipidemia, Hypertension Additional Past Medical History / Comment(s): Meniere's dx-tinnitis R ear, low back pain on occasion if lifts heavy, hiatal hernia, migraines History of Any Multi-Drug Resistant Organisms: None Reported Past Surgical History: Heart Catheterization With Stent, Hernia Repair Additional Past Surgical History / Comment(s): 2010 angioplasty and stenting. Bilateral inguinal hernia repair. EGD with dilation of esophagus. colonoscopy Past Anesthesia/Blood Transfusion Reactions: Motion Sickness Date of Last Stent Placement:: 2009 Past Psychological History: No Psychological Hx Reported Smoking Status: Never smoker Past Alcohol Use History: Occasional Past Drug Use History: None Reported - Past Family History Father Family Medical History: AFIB, Cancer Additional Family Medical History / Comment(s): Father has bladder cancer and has had AAA repair. Mother Family Medical History: Coronary Artery Disease (CAD) Additional Family Medical History / Comment(s): Mother has had 4-5 stents. She also has macular degeneration. Brother(s) Family Medical History: Cancer, Coronary Artery Disease (CAD), Hypertension Additional Family Medical History / Comment(s): Pt has one brother with colon cancer and one brother with hypertension and heart disease. Medications and Allergies Home Medications Medication Instructions Recorded Confirmed Type Aspirin 81 mg PO DAILY 08/14/14 01/31/24 History Atorvastatin [Lipitor] 80 mg PO HS 08/14/14 01/31/24 History Isosorbide Mononitrate [Isosorbide 30 mg PO DAILY 08/14/14 01/31/24 History Mononitrate ER] Metoprolol Tartrate 50 mg PO DAILY 08/14/14 01/31/24 History Omeprazole [PriLOSEC] 20 mg PO AC-BRKFST 08/14/14 01/31/24 History Triamterene-Hctz 37.5-25Mg 25 tab PO DAILY 08/14/14 01/31/24 History [Dyazide 37.5-25 Capsule] lisinopriL [Zestril] 5 mg PO DAILY 10/18/18 01/31/24 History Allergies Allergy/AdvReac Type Severity Reaction Status Date / Time Penicillins Allergy Unknown Verified 01/31/24 09:29 Surgical - Exam Vital Signs Temp Pulse Resp BP Pulse Ox 98 F 58 L 16 174/97 97 01/31/24 09:35 01/31/24 09:35 01/31/24 09:35 01/31/24 09:35 01/31/24 09:35 Physical exam: General: Well-developed, well-nourished HEENT: Normocephalic, sclerae nonicteric Abdomen: Nontender, nondistended Extremities: No edema Neuro: Alert and oriented Assessment and Plan (1) Colon cancer screening Narrative/Plan: Will proceed with colonoscopy at this time. Current Visit: Yes Status: Acute Code(s): Z12.11 - ENCOUNTER FOR SCREENING FOR MALIGNANT NEOPLASM OF COLON SNOMED Code(s): 759370202
--- NOTE | 2024-01-31 10:17 | P.PCN ---
Date of Procedure: 01/31/24 Procedure(s) Performed: PREOPERATIVE DIAGNOSIS: Colon cancer screening, family history of colon cancer in brother POSTOPERATIVE DIAGNOSIS: Diverticulosis, lipomatous appearing lesion sigmoid colon PROCEDURE: Colonoscopy with biopsy ANESTHESIA: MAC SURGEON: Johny Spears M.D. SPECIMENS: Sigmoid colon ENDOSCOPIC PROCEDURE: The patient was placed on the endoscopy table in the left decubitus position. The Olympus colonoscope was inserted into the anus and passed under direct visualization to the base of the cecum. The appendiceal orifice was visualized. From that point the scope was slowly withdrawn inspecting all surfaces carefully. There were no neoplastic inflammatory or polypoid lesions throughout the cecum, ascending, transverse, and descending colon. In the sigmoid colon there was a 1 to 1.5 cm polypoid lesion. This had a smooth mucosa. The biopsy forceps were used to obtain a sample of this area. This appeared consistent with a submucosal lipoma. The remainder of the sigmoid and rectum was normal. There was mild diverticulosis. Digital rectal examination was normal. The patient was taken to the recovery room in stable condition per anesthesia guidelines. RECOMMENDATIONS: Await biopsy results. Repeat colonoscopy 5 years
[2024-01-31 10:38] VITALS: BP 148/90; PULSE 57
== END 2024-01-31 10:51 | disposition home or self-care (01) ==
LOC: ORWHC2ENDO 08:39
PROVIDERS: ATTEND Surgery
DX: Z12.11 Encounter for screening for malignant neoplasm of colon (principal); K63.5 Polyp of colon; K57.30 Diverticulosis of large intestine without perforation or abscess without bleeding; I25.10 Atherosclerotic heart disease of native coronary artery without angina pectoris; I10 Essential (primary) hypertension; E78.5 Hyperlipidemia, unspecified; Z80.0 Family history of malignant neoplasm of digestive organs; Z88.0 Allergy status to penicillin; Z98.890 Other specified postprocedural states
CPT/HCPCS: 45380; 88305

== ENCOUNTER → 2024-04-17 | Outpatient (CLI) | payer BC ==
[2024-04-17 16:23] LABS: Chol/HDL Ratio 3.67 Ratio; LDL Cholesterol,Calculated 68.1 mg/dL (0.0-131.0)
== END | disposition home or self-care (01) ==
LOC: LABWHC1 08:16
PROVIDERS: ATTEND Internal Medicine Interventional Cardiology
DX: I25.10 Atherosclerotic heart disease of native coronary artery without angina pectoris (principal); E78.5 Hyperlipidemia, unspecified
CPT/HCPCS: 36415; 80061

== ENCOUNTER → 2024-05-10 | Outpatient (CLI) | payer BC ==
--- NOTE | 2024-05-10 13:57 | US ---
EXAMINATION TYPE: US liver DATE OF EXAM: 05/10/2024 COMPARISON: NONE CLINICAL INDICATION: Male, 59 years old with history of R74.01 ELEVATED TRANSAMINASE LEVEL; TECHNIQUE: Grayscale and color Doppler imaging of the right upper quadrant. FINDINGS: EXAM MEASUREMENTS: Liver Length: 19.5 cm Gallbladder Wall: 0.2 cm CBD: 0.4 cm, color Doppler imaging was utilized to isolate the common bile duct for measurement. Right Kidney: 12.3x5.1x6.1 cm TAXIMETER REPAIRER NOTES: limited scan due to pt body habitus and overlying bowel Pancreas: Obscured by bowel gas Liver: Enlarged Increased attenuation, decreased visualization of vessels suggestive of fatty infilt rate difficult to penetrate, hypoechoic area adj. to GB:1.6x1.0x1.2cm Gallbladder: Slightly limited due to gas Evidence for sonographic Price's sign: No CBD: wnl Right Kidney: No hydronephrosis or masses seen Pancreas is obscured by overlying bowel gas. Liver is enlarged with decreased visualization of vessel s and diffusely increased echogenicity. It is difficult to penetrate. There is some focal fatty spari ng adjacent to the gallbladder. Gallbladder demonstrates no wall thickening, calculi, or surrounding fluid. Negative sonographic Price's sign. Common bile duct is within normal limits. Right kidney dem onstrates no hydronephrosis, mass, or shadowing calculi. IMPRESSION: Hepatomegaly with diffuse fatty infiltration. Small region of focal fatty sparing adjacent to gallbla dder. [facility], , 05/10/2024 1:55 PM
== END | disposition home or self-care (01) ==
LOC: RADUSWWP 07:01
PROVIDERS: ATTEND Family Medicine
DX: K76.0 Fatty (change of) liver, not elsewhere classified (principal); R74.01 Elevation of levels of liver transaminase levels; R16.0 Hepatomegaly, not elsewhere classified
CPT/HCPCS: 76705